=== PATIENT | female | born 1980 | race Caucasian/White ===

== ENCOUNTER 2017-09-30 08:25 | Emergency (ER) | payer BC ==
[2017-09-30 08:52] LABS: URINE BLOOD (Dip) POC Negative (NEGATIVE); URINE KETONES (Dip) POC Negative (NEGATIVE); URINE LEUKOCYTE EST (Dip) POC 1+ (NEGATIVE); URINE NITRITE (Dip) POC Positive (NEGATIVE); URINE TOTAL PROTEIN POC 1+ (NEGATIVE)
== END 2017-09-30 09:12 | disposition home or self-care (01) ==
LOC: FTE 08:25
DX: N30.90 Cystitis, unspecified without hematuria (principal)
CPT/HCPCS: 81003; 81025; 99283

== ENCOUNTER 2017-10-08 08:26 | Emergency (ER) | payer BC ==
[2017-10-08] MEDS: ONDANSETRON (ODT) 4 MG TAB ODT (08:50)
[2017-10-08 08:58] LABS: URINE BLOOD (Dip) POC Negative (NEGATIVE); URINE KETONES (Dip) POC 2+ (NEGATIVE); URINE LEUKOCYTE EST (Dip) POC Negative (NEGATIVE); URINE NITRITE (Dip) POC Positive (NEGATIVE); URINE TOTAL PROTEIN POC Negative (NEGATIVE)
[2017-10-08 09:28] LABS: ADD UMIC YES; UR ASCORBIC ACID NEGATIVE (NEGATIVE); UR BILIRUBIN (Dip) NEGATIVE (NEGATIVE); UR BLOOD (Dip) NEGATIVE (NEGATIVE); UR CLARITY CLEAR (CLEAR); UR COLOR AMBER (YELLOW); UR GLUCOSE (Dip) NEGATIVE (NEGATIVE); UR KETONES (Dip) 1+ mg/dL (NEGATIVE); UR LEUKOCYTE ESTERASE (Dip) NEGATIVE Leu/ul (NEGATIVE); UR MUCUS FEW /HPF (NONE SEEN); UR NITRITE (Dip) POSITIVE (NEGATIVE); UR RBC 1 /HPF (0-5); UR SPECIFIC GRAVITY (Dip) 1.015 (1.003-1.030); UR SQUAMOUS EPITHELIAL CELL FEW /HPF (FEW); UR TOTAL PROTEIN (Dip) NEGATIVE (NEGATIVE); UR UROBILINOGEN (Dip) 1+ mg/dL (NEGATIVE); UR WBC 2 /HPF (0-5)
[2017-10-08] MEDS: LIDOCAINE 1% (MDV) 10 ML INJ INFIL (09:52)
[2017-10-08] MEDS: AZITHROMYCIN 250 MG TAB PO (09:52)
[2017-10-08] MEDS: CEFTRIAXONE 500 MG INJ IM (09:53)
== END 2017-10-08 10:41 | disposition home or self-care (01) ==
LOC: FTE 08:26
DX: R30.0 Dysuria (principal); I10 Essential (primary) hypertension
CPT/HCPCS: 81001; 81003; 81025; 87086; 87210; 87591; 96372; 99284-25

== ENCOUNTER 2018-02-22 07:01 | Emergency (ER) | payer BC | END 2018-02-22 07:47 | disposition home or self-care (01) | LOC: FTE 07:01 | DX: J06.9 Acute upper respiratory infection, unspecified (principal); H93.8X3 Other specified disorders of ear, bilateral | CPT/HCPCS: 99282; Z7502 ==

== ENCOUNTER 2018-06-19 08:09 | Emergency (ER) | payer BC ==
[2018-06-19 09:05] LABS: ADD UMIC YES; UR ASCORBIC ACID NEGATIVE (NEGATIVE); UR BACTERIA FEW /HPF (NONE SEEN); UR BILIRUBIN (Dip) NEGATIVE (NEGATIVE); UR BLOOD (Dip) NEGATIVE (NEGATIVE); UR CLARITY CLOUDY (CLEAR); UR COLOR AMBER (YELLOW); UR GLUCOSE (Dip) NEGATIVE (NEGATIVE); UR KETONES (Dip) NEGATIVE (NEGATIVE); UR LEUKOCYTE ESTERASE (Dip) 3+ Leu/ul (NEGATIVE); UR NITRITE (Dip) NEGATIVE (NEGATIVE); UR RBC 12 /HPF (0-5); UR SPECIFIC GRAVITY (Dip) 1.011 (1.003-1.030); UR SQUAMOUS EPITHELIAL CELL MANY /HPF (FEW); UR TOTAL PROTEIN (Dip) NEGATIVE (NEGATIVE); UR UROBILINOGEN (Dip) NEGATIVE (NEGATIVE); UR WBC > 182 /HPF (0-5)
== END 2018-06-19 09:32 | disposition home or self-care (01) ==
LOC: FTE 09:32
DX: N39.0 Urinary tract infection, site not specified (principal)
CPT/HCPCS: 81001; 81025; 87086; 99283

== ENCOUNTER 2018-07-01 08:08 | Emergency (ER) | payer BC ==
[2018-07-01 08:54] LABS: URINE BLOOD (Dip) POC Negative (NEGATIVE); URINE GLUCOSE (Dip) POC Negative (NEGATIVE); URINE KETONES (Dip) POC Negative (NEGATIVE); URINE LEUKOCYTE EST (Dip) POC 1+ (NEGATIVE); URINE NITRITE (Dip) POC Positive (NEGATIVE); URINE TOTAL PROTEIN POC Negative (NEGATIVE)
[2018-07-01 08:54] LABS: URINE PH (Dip) POC 6.5 (5.0-8.5)
[2018-07-01] MEDS: CEFTRIAXONE 1 GM INJ IM (09:15)
[2018-07-01] MEDS: LIDOCAINE 1% (MDV) 20 ML INJ SC (09:15)
== END 2018-07-01 09:31 | disposition home or self-care (01) ==
LOC: FTE 08:08
DX: N39.0 Urinary tract infection, site not specified (principal)
CPT/HCPCS: 81003; 81025; 96372; 99284-25

== ENCOUNTER 2018-07-12 08:23 | Emergency (ER) | payer BC ==
[2018-07-12 09:22] LABS: URINE BLOOD (Dip) POC Trace-intact (NEGATIVE); URINE GLUCOSE (Dip) POC Negative (NEGATIVE); URINE KETONES (Dip) POC Negative (NEGATIVE); URINE LEUKOCYTE EST (Dip) POC 3+ (NEGATIVE); URINE NITRITE (Dip) POC Negative (NEGATIVE); URINE TOTAL PROTEIN POC Negative (NEGATIVE)
== END 2018-07-12 10:02 | disposition home or self-care (01) ==
LOC: FTE 08:23
DX: N76.0 Acute vaginitis (principal)
CPT/HCPCS: 81003; 81025; 87086; 99283

== ENCOUNTER 2018-10-24 05:11 | Emergency (ER) | payer BC | END 2018-10-24 06:00 | disposition home or self-care (01) | LOC: FTE 05:11 | DX: L02.214 Cutaneous abscess of groin (principal) | CPT/HCPCS: 99283; Z7502 ==

== ENCOUNTER 2018-11-14 14:29 | Emergency (ER) | payer BC ==
[2018-11-14] MEDS: LORAZEPAM 1 MG TAB PO (16:06)
[2018-11-14] MEDS: NICARDipine HCL 30 MG CAPSULE PO (16:51)
== END 2018-11-14 17:15 | disposition home or self-care (01) ==
LOC: FTE 14:29
DX: I10 Essential (primary) hypertension (principal); F41.9 Anxiety disorder, unspecified
CPT/HCPCS: 99283; Z7502

== ENCOUNTER 2018-11-24 20:15 | Emergency (ER) | payer BC ==
[2018-11-24] MEDS: LIDOCAINE 1% (MDV) 20 ML INJ SC (22:13)
== END 2018-11-24 23:33 | disposition home or self-care (01) ==
LOC: FTE 20:15
DX: L02.211 Cutaneous abscess of abdominal wall (principal); I10 Essential (primary) hypertension
CPT/HCPCS: 10060; 99283-25